=== PATIENT | male | born 1975 | race American Indian/Alaskan Native ===

== ENCOUNTER 2016-09-08 08:02 | Emergency (ER) | payer OTHER ==
[2016-09-08 08:37] VITALS: BMI 34.2
[2016-09-08 09:09] VITALS: BP 138/90; PULSE 73; RESP 18; TEMP 98.3; O2SAT 98
--- NOTE | 2016-09-08 09:20 | ED PDOC ---
Arrival/HPI - General Chief Complaint: Dental Pain Time Seen by Provider: 09/08/16 09:14 Historian: Patient - History of Present Illness Narrative History of Present Illness (Text): 09/08/16 09:18 This 41 yo male presents to this ED c/o right upper dental pain, and right facial swelling x 1 day. Dental pain started 4 days ago. He called his dentist , but dentist office was closed today. He is requesting ABX and pain medication. Denies fever, sob, dysphagia, or facial erythema. denies other complains. Time/Duration: < week Context: Home Past Medical History - Provider Review Nursing Documentation Reviewed: Yes - Infectious Disease Hx of Infectious Diseases: None - Tetanus Immunization Tetanus Immunization: Unknown - Cardiac Hx Cardiac Disorders: No Hx Hypertension: No - Pulmonary Hx Tuberculosis: No - Neurological HX Cerebrovascular Accident: No Hx Seizures: No - Hematological/Oncological Hx Cancer: No - Gastrointestinal Other/Comment: Hepatitis C - Genitourinary/Gynecological Hx Sexually Transmitted Diseases: No - Psychiatric Hx Depression: No Hx Emotional Abuse: No Hx Physical Abuse: No Hx Substance Use: Yes - Past Surgical History Past Surgical History: No Previous - Anesthesia Hx Anesthesia: No Hx Anesthesia Reactions: No Hx Malignant Hyperthermia: No - Suicidal Assessment Feels Threatened In Home Enviroment: No Family/Social History - Physician Review Nursing Documentation Reviewed: Yes Family/Social History: No Known Family HX Smoking Status: Heavy Smoker > 10 Cigarettes Daily Hx Alcohol Use: Yes Amount per day: 12 Hx Substance Use: Yes Substance used: heroin, cocaine Hx Substance Use Treatment: Yes Allergies/Home Meds Allergies/Adverse Reactions: Allergies No Known Allergies Allergy (Verified 04/30/15 07:48) Review of Systems - Review of Systems Constitutional: Normal. absent: Fatigue, Weight Change, Fevers Eyes: Normal ENT: Other (dental pain) Respiratory: Normal. absent: SOB, Cough Cardiovascular: Normal. absent: Chest Pain Gastrointestinal: Normal. absent: Abdominal Pain, Nausea, Vomiting Genitourinary Male: Normal Musculoskeletal: Normal Skin: Normal Neurological: Normal Endocrine: Normal Hemo/Lymphatic: Normal Psychiatric: Normal Physical Exam Vital Signs Temp Pulse Resp BP Pulse Ox 09/08/16 09:08 98.3 F 73 18 138/90 98 Temperature: Afebrile Blood Pressure: Normal Pulse: Regular Respiratory Rate: Normal Appearance: Positive for: Well-Appearing, Non-Toxic, Comfortable Pain Distress: None Mental Status: Positive for: Alert and Oriented X 3 - Systems Exam Head: Present: Atraumatic, Normocephalic Pupils: Present: PERRL Extroacular Muscles: Present: EOMI Conjunctiva: Present: Normal Ears: Present: Normal, NORMAL TM, Normal Canal. No: Erythema, TM Bulging Mouth: Present: Moist Mucous Membranes, Normal Lips, Normal Tounge, Other ( Dental caries. Mild right facial selling, bu no erythema, rash, or abscess). No: Drooling Pharnyx: Present: Normal. No: ERYTHEMA, EXUDATE, TONSILS ENLARGED Neck: Present: Normal Range of Motion, Trachea Midline. No: Meningeal Signs, Lymphadenopathy Respiratory/Chest: Present: Clear to Auscultation, Good Air Exchange. No: Respiratory Distress, Accessory Muscle Use, Wheezes, Retracting, Rhonchi Cardiovascular: Present: Regular Rate and Rhythm, Normal S1, S2. No: Murmurs Upper Extremity: Present: Normal Inspection, Normal ROM, Neurovascularly Intact , Capillary Refill < 2s Lower Extremity: Present: Normal Inspection, NORMAL PULSES, Normal ROM, Neurovascularly Intact, Capillary Refill < 2 s Neurological: Present: GCS=15, CN II-XII Intact, Speech Normal, Motor Func Grossly Intact, Normal Sensory Function, Normal Cerebellar Funct, Gait Normal Skin: Present: Warm, Dry, Normal Color. No: Rashes Psychiatric: Present: Alert, Oriented x 3 Medical Decision Making ED Course and Treatment: 09/08/16 09:23 Re-evaluation. Patient feels better. Discussed results and plan with patient who expresses understanding. All questions answered and there is agreement with the plan to discharge home with instructions. Patient stable for discharge. Return if symptoms persist or worsen Re-evaluation Time: 09:22 Reassessment Condition: Re-examined, Improved - Medication Orders Current Medication Orders: Discontinued Medications Clindamycin HCl (Cleocin) 300 mg PO STAT STA PRN Reason: Protocol Stop: 09/08/16 09:16 Ketorolac Tromethamine (Toradol) 30 mg IM STAT STA Stop: 09/08/16 09:24 Disposition/Present on Arrival - Present on Arrival Any Indicators Present on Arrival: No History of DVT/PE: No History of Uncontrolled Diabetes: No Urinary Catheter: No History of Decub. Ulcer: No History Surgical Site Infection Following: None - Disposition Have Diagnosis and Disposition been Completed?: Yes Diagnosis: Pain due to dental caries Disposition: HOME/ ROUTINE Disposition Time: 09:24 Patient Problems: Current Active Problems Problem Status Onset Pain due to dental caries Acute Condition: GOOD Discharge Instructions (ExitCare): Dental Caries (ED), Toothache (ED) Additional Instructions: Call private dentist for follow up visit in 1-2 days. Take medication as instructed. Return to emergency if tooth infection worsen., difficulty swallowing, fever or worsen of face swelling Prescriptions: Chlorhexidine 0.12% [Peridex] 15 ml PO BID #1 bottle Clindamycin [Cleocin] 300 mg PO QID #28 cap Naproxen 500 mg PO BID PRN #20 tab PRN Reason: Pain, Severe (8-10) Referrals: PCP,JASON [Primary Care Provider] - Follow up with primary Corbin Underwood DO [Staff Provider] - Follow up with primary Forms: WORK NOTE
== END 2016-09-08 09:45 | disposition home or self-care (01) ==
LOC: ED 08:02
DX: K02.9 Dental caries, unspecified (principal); K08.89 Other specified disorders of teeth and supporting structures
CPT/HCPCS: 96372; 99283; J1885